=== PATIENT | female | born 1995 | race Caucasian/White ===

== ENCOUNTER 2017-12-19 03:25 | Inpatient (IN) | payer OTHER ==
[~2017-12-19] VITALS: Ht 167.6 cm; Wt 48.7 kg
--- NOTE | 2017-12-19 04:08 | PD ---
HPI Chief Complaint: ba Time Seen by Provider: 04:08 Travel History International Travel<30 days: No Contact w/Intl Traveler<30days: No Traveled to known affect area: No History of Present Illness HPI 22-year-old female presents to the emergency department as a transfer from [facility] for psychiatric evaluation. Patient denies any suicidal homicidal ideations. States that she takes medication for depression. Per report, the family has voiced concern about her worsening depression and erratic behavior. Patient tells me that she does not feel she is acting any differently. She denies any illicit drug use. States that she has been "institutionalized" for alcoholism in the past but has not been drinking alcohol. She denies any other acute medical needs at this time. [facility] Past Medical History Depression: Yes Social History Tobacco Use: Yes Allergies-Medications (Allergen,Severity, Reaction): Coded Allergies: No Known Allergies (Unverified , 12/19/17) Review of Systems Except as stated in HPI: all other systems reviewed are Neg Physical Exam Narrative GENERAL: Well-nourished female patient, no acute distress. SKIN: Focused skin assessment warm/dry. HEAD: Atraumatic. Normocephalic. EYES: Pupils equal and round. No scleral icterus. No injection or drainage. ENT: No nasal bleeding or discharge. Mucous membranes pink and moist. NECK: Trachea midline. No JVD. CARDIOVASCULAR: Regular rate and rhythm. No murmur appreciated. RESPIRATORY: No accessory muscle use. Clear to auscultation. Breath sounds equal bilaterally. GASTROINTESTINAL: Abdomen soft, non-tender, nondistended. Hepatic and splenic margins not palpable. MUSCULOSKELETAL: No obvious deformities. No clubbing. No cyanosis. No edema. NEUROLOGICAL: Awake and alert. No obvious cranial nerve deficits. Motor grossly within normal limits. Normal speech. MDM Medical Decision Making Medical Screen Exam Complete: Yes Emergency Medical Condition: Yes Medical Record Reviewed: Yes Differential Diagnosis Mood disorder versus personality disorder versus adjustment reaction disorder Narrative Course 22-year-old female presents emergency department for psychiatric evaluation from [facility]. Patient appears well and without distress. She denies suicidal homicidal ideations. Lab work is reviewed from the transferring facility and without acute concern. Patient does have a [place] act that accompanies her, however it is not signed. Patient will be considered voluntary at this time. She is medically cleared to undergo psychiatric screening for further evaluation and disposition. Diagnosis Primary Impression: Adjustment reaction Qualified Codes: F43.20 - Adjustment disorder, unspecified Condition: Stable Evie Fuentes Dec 19, 2017 04:08
[2017-12-19] MEDS ORDERED: FLUO40CA PO (04:17)
[2017-12-19] MEDS ORDERED: FLUO1TAB3 PO (04:17)
[2017-12-19 04:18] VITALS: BP 140/78; PULSE 90; RESP 16; TEMP 98.3; O2SAT 100
[2017-12-19] MEDS ORDERED: NICOTINE 21 MG/24 HR PATCH T-DERMAL ONE (04:30)
[2017-12-19] MEDS ORDERED: ACETAMINOPHEN 325 MG TAB PO PRN (10:45)
[2017-12-19] MEDS ORDERED: MAGNESIUM HYDROXIDE SUSP 30 ML CUP PO PRN (10:45)
[2017-12-19] MEDS ORDERED: ALUMINUM/MAGNESIUM/SIMETH 30 ML CUP PO PRN (10:45)
[2017-12-19] MEDS ORDERED: LORazepam 2 MG/ML VIAL IM PRN ×2 (10:45)
[2017-12-19] MEDS ORDERED: LORazepam 0.5 MG TAB PO PRN (10:45)
--- NOTE | 2017-12-19 11:06 | HHI.HP ---
Provisional Diagnosis Admission Date [place] I. Unspecified psychosis, r/o substance-induced psychosis, r/o brief psychotic episode, r/o first break of schizophrenia, history of MDD, eating disorder [place] II. Deferred [place] III. No significant medical history [place] IV. History of self cutting behavior, drug use, eating disorder [place] V. 40 Certification of Person's Competence To Provide Express and Informed Consent I have personally examined Cheryl Mo , a person being served at [facility] on, Dec 19, 2017 10:47. Express and informed consent means consent voluntarily given in writing, by a competent person, after sufficient explanation and disclosure of the subject matter involved to enable the person to make a knowing and willful decision without any element of force, fraud, deceit, duress, or other form of constraint or coercion. This person is 18 years of age or older, is not now known to be incompetent to consent to treatment with a guardian advocate, and does not have a health care surrogate or proxy currently making medical treatment decisions. I have found this person to be one of the following: [] Competent to provide express and informed consent, as defined above, for voluntary admission to this facility and is competent to provide express and informed consent for treatment. He/she has the consistent capacity to make well reasoned, willful, and knowing decisions concerning his or her medical or mental health treatment. The person fully and consistently understands the purpose of the admission for examination/placement and is fully capable of personally exercising all rights assured under [place] Incompetent to provide express and informed consent to voluntary admission, and this is incompetent to provide express and informed consent to treatment. The person must be transferred to involuntary status and a petition for a guardian advocate filed with the Circuit Court. [x] Refusing to provide express and informed consent to voluntary admission but is competent to provide express and informed consent for treatment. The person must be discharged or transferred to involuntary status. Form shall be completed within 24 hours of a person's arrival at the receiving facility and filed in the clinical record of each person: 1. Admitted on a voluntary basis 2. Permitted to provide express and informed consent to his/her own treatment 3. Allowed to transfer from involuntary to voluntary status 4. Prior to permitting a person to consent to his or her own treatment after having been previously found incompetent to consent to treatment. History of Present Illness Capacity: Has Capacity HPI The patient is a 22-year-old woman, domiciled with her parents, she has a boyfriend, unemployed, first time at [place], with self-reported psychiatric history of eating disorder, depression, marijuana and alcohol use disorder, self cutting behavior, she denies previous psychiatric hospitalizations, she denies suicidal attempts, she is on Prozac 40 mg, no significant medical history, who presents to the emergency department as a transfer from [facility] for psychiatric evaluation. On her initial ER presentation :"patient denies any suicidal homicidal ideations. States that she takes medication for depression. Per report, the family has voiced concern about her worsening depression and erratic behavior. Patient tells me that she does not feel she is acting any differently. She denies any illicit drug use. States that she has been "institutionalized" for alcoholism in the past but has not been drinking alcohol. She denies any other acute medical needs at this time.". Patient was seen today for psychiatric evaluation. EMR was reviewed. Documentation from [facility] reviewed. On psychiatric evaluation today the patient is found in the ER, oddly related, in a perplexed state, definitely internally preoccupied. All her belongings and even her pajamas are spread in the floor. She says that those are things that she does not need anymore "is just garbage". Patient also have a periodic abnormal involuntary movement in her neck and her arms. She says that she was brought here "by those people, you know them". Patient reports that she does not really know the reason she is here. The patient seems to be very confused, she is completely disoriented, she does not know which she is, she says that today is July 12, 1925. Patient is very labile, with frequent inappropriate laughing, but she is redirectable. She reports good mood, she says that she is happy, she denies suicidal and homicidal ideation, she denies visual hallucinations. She reports auditory hallucinations "the voices of my friends telling me to hurt myself". She reports that she suffers of anorexia and depression, but she is unable to elaborate about outpatient care and previous hospitalizations. At the beginning she denied the use of drugs, but with reassurance the patient was able to say that she has been using drugs, but she does not say the name of the drugs. She reports that she has been "dreaming while awake, feeling that I am another person who took my body". We called family member for collateral information, and [phone], but unfortunately nobody picked up the phone. Review of Systems Endocrine: DENIES: Abnorml menstrual pattern, Heat/cold intolerance, Polydipsia , Polyuria, Polyphagia Eyes: DENIES: Blurred vision, Diplopia, Eye inflammation, Eye pain, Vision loss , Photosensitivity, Double Vision Ears, nose, mouth, throat: DENIES: Tinnitus, Hearing loss, Vertigo, Nasal discharge, Oral lesions, Throat pain, Hoarseness, Ear Pain, Running Nose, Epistaxis, Sinus Pain, Toothache, Odynophagia Respiratory: DENIES: Apneas, Cough, Snoring, Wheezing, Hemoptysis, Sputum production, Shortness of breath Gastrointestinal: DENIES: Abdominal pain, Black stools, Bloody stools, Constipation, Diarrhea, Nausea, Vomiting, Difficulty Swallowing, Anorexia Genitourinary: DENIES: Abnormal vaginal bleeding, Dysmenorrhea, Dyspareunia, Sexual dysfunction, Urinary frequency, Urinary incontinence, Urgency, Hematuria , Dysuria, Nocturia, Vaginal discharge Musculoskeletal: DENIES: Joint pain, Muscle aches, Stiffness, Joint Swelling, Back pain, Neck pain Integumentary: DENIES: Abnormal pigmentation, Pruritus, Rash, Nail changes, Breast masses, Breast skin changes, Nipple discharge Hematologic/lymphatic: DENIES: Bruising, Lymphadenopathy Immunologic/allergic: DENIES: Eczema, Urticaria Neurologic: DENIES: Abnormal gait, Headache, Localized weakness, Paresthesias, Seizures, Speech Problems, Tremor, Poor Balance Psychiatric: COMPLAINS OF: Confusion, Hallucinations, Delusions Past Psych History Violence risk - others (6 mos) Increased Violence risk - self (6 mos) Increased Substance Abuse History Drugs/Alcohol past 12 months Patient reports the use of alcohol in the past, daily use of marijuana, Past Family Social History Coded Allergies: No Known Allergies (Unverified , 12/19/17) Reported Medications Fluoxetine (Fluoxetine) 40 Mg Cap, 40 CAP PO DAILY, #30 CAP 0 Refills 12/19/17 Current Medications Medications (Trade) Dose Ordered Sig/Mary Route Start Time Stop Time Status Last Admin (PROzac) 1,600 mg DAILY PO 12/19/17 10:45 UNV Family Psych History She reports that her mother has depression Social History Patient was born and raised in [place], she lives in [place] with her parents, she has a boyfriend, she is unemployed, graduated from high school Patient's Strengths (min. 2) Patient is hyperactive, with involvement of psychomotor agitation, but no tremors, no EPS, no withdrawal present Physical Exam Vital Signs Vital Signs Date Time Temp Pulse Resp B/P (MAP) Pulse Ox O2 Delivery O2 Flow Rate FiO2 12/19/17 04:18 98.3 90 16 140/78 (98) 100 Room Air Mental Status Examination Appearance: Appropriate Consciousness: Alert Orientation: x4, Person Motor Activity: Normal gait Speech: Unremarkable Language: Adequate Fund of Knowledge: Adequate Attention and Concentration: Adequate Memory: Impaired Mood: Appropriate Affect: Appropriate Thought Process & Associations: Intact, Loose associations, Disorganized Thought Content: Hallucinations, Thought blocking, Depersonalization, Derealization Hallucination Type: Auditory Delusion Type: Paranoid Suicidal Ideation: No Suicidal Plan: No Suicidal Intention: No Homicidal Ideation: No Homicidal Plan: No Homicidal Intention: No Insight: Fair Judgment: Impulsive Assessment & Plan Problem List: (1) Unspecified psychosis ICD Codes: F29 - Unspecified psychosis not due to a substance or known physiological condition Assessment & Plan: On psychiatric evaluation today the patient presents with stage of perplexity, internal preoccupation, blocking thought, delay speech and paranoia. Throughout the evaluation the patient also presents periods of tangentiality, disorganized speech, depersonalization and derealization. She reports auditory hallucinations of voices of her friends telling her to kill herself. The patient also presents a significant cognitive impairment, she is confused, with fluctuation of consciousness and attention, and she is completely disoriented in time and place. Unfortunately we did not have sufficient collateral information to complete the psychiatric assessment. The patient is poor historian and has limited reliability. But she reports history of depression, eating disorder which is evident by patient low weight and lanugo in her back. She also has history of alcohol use disorder, with several institutionalizations for rehabilitation, poor coping skills, self cutting behavior without SI. At this moment the etiology of her current presentation continue to be unclear, but given the nature of her psychosis and cognitive impairment my impression is that substance induced psychosis she will remain high in the differential followed by primary psychosis, mood disorders and also personality disorder. Patient would be admitted in psychiatry for stabilization and safety. Will order psychiatric consult for second opinion. I will continue her Prozac 40 mg, we will start olanzapine 2.5 mg twice daily to help with psychosis. The patient might benefit of a brain CT to rule out neurological causes of her psychosis. Transfer to 2700 unit. Assessment & Plan Estimated LOS: days Sergey Almonte MD Dec 19, 2017 11:06
[2017-12-19 12:00] VITALS: BP 133/85; PULSE 110; RESP 17; TEMP 98; O2SAT 98
--- NOTE | 2017-12-19 13:13 | PD.PSY.CON ---
Provisional Diagnosis Admission Date Dec 19, 2017 at 10:47 [place] I. Unspecified psychosis, r/o substance-induced psychosis, r/o brief psychotic episode, r/o first break of schizophrenia, history of MDD, eating disorder [place] II. Deferred [place] III. No significant medical history [place] IV. History of self cutting behavior, drug use, eating disorder [place] V. 40 History of Present Illness Service Psychiatry Consult Requested By Dr. Palomino Reason for Consult Second opinion petition supporting [facility] Primary Care Physician Unknown HPI The patient is a 22-year-old woman, domiciled with her parents, she has a boyfriend, unemployed, first time at [place], with self-reported psychiatric history of eating disorder, depression, marijuana and alcohol use disorder, self cutting behavior, she denies previous psychiatric hospitalizations, she denies suicidal attempts, she is on Prozac 40 mg, no significant medical history, who presents to the emergency department as a transfer from [facility] for psychiatric evaluation. On her initial ER presentation :"patient denies any suicidal homicidal ideations. States that she takes medication for depression. Per report, the family has voiced concern about her worsening depression and erratic behavior. Patient tells me that she does not feel she is acting any differently. She denies any illicit drug use. States that she has been "institutionalized" for alcoholism in the past but has not been drinking alcohol. She denies any other acute medical needs at this time.". Patient was seen today for psychiatric evaluation. EMR was reviewed. Documentation from [facility] reviewed. On psychiatric evaluation today the patient is found in the ER, oddly related, in a perplexed state, definitely internally preoccupied. All her belongings and even her pajamas are spread in the floor. She says that those are things that she does not need anymore "is just garbage". Patient also have a periodic abnormal involuntary movement in her neck and her arms. She says that she was brought here "by those people, you know them". Patient reports that she does not really know the reason she is here. The patient seems to be very confused, she is completely disoriented, she does not know which she is, she says that today is July 12, 1925. Patient is very labile, with frequent inappropriate laughing, but she is redirectable. She reports good mood, she says that she is happy, she denies suicidal and homicidal ideation, she denies visual hallucinations. She reports auditory hallucinations "the voices of my friends telling me to hurt myself". She reports that she suffers of anorexia and depression, but she is unable to elaborate about outpatient care and previous hospitalizations. At the beginning she denied the use of drugs, but with reassurance the patient was able to say that she has been using drugs, but she does not say the name of the drugs. She reports that she has been "dreaming while awake, feeling that I am another person who took my body". We called family member for collateral information, and [phone], but unfortunately nobody picked up the phone. For [address] note dictated by Dr. Palomino reviewed and agreed with. Dr. Palomino he has sign first opinion petition supporting Lagunas act. Patient seen by me in her room with nurse Brittney. Patient continues disorganized and quite scattered and somewhat vigilant. She acknowledges infrequent marijuana user, states she is also an alcoholic but is been sober for about 2 months. She also does have a history of mental health issues and hospitalizations related to that along with addictions. I agree patient meets criteria for involuntary psychiatric hospitalization under the Lagunas act thus I'll cosign second opinion petition supporting Lagunas act Past Family Social History Coded Allergies: No Known Allergies (Unverified , 12/19/17) Reported Medications Fluoxetine (Fluoxetine) 40 Mg Cap, 40 CAP PO DAILY, #30 CAP 0 Refills 12/19/17 Current Medications Medications (Trade) Dose Ordered Sig/Mary Route Start Time Stop Time Status Last Admin (PROzac) 1,600 mg DAILY PO 12/19/17 10:45 UNV (Ativan) 1 mg Q6H PRN PO 12/19/17 10:45 UNV (Ativan Inj) 1 mg Q6H PRN IM 12/19/17 10:45 (Ativan) 0.5 mg Q12H PRN PO 12/19/17 10:45 UNV (Ativan Inj) 0.5 mg Q12H PRN IM 12/19/17 10:45 UNV (Tylenol) 650 mg Q4H PRN PO 12/19/17 10:45 (Milk Of Magnesia Liq) 30 ml DAILY PRN PO 12/19/17 10:45 UNV (Mag-Al Plus Susp Liq) 30 ml Q6H PRN PO 12/19/17 10:45 (Habitrol 21 Mg Patch.24 Hr) 1 patch DAILY T-DERMAL 12/20/17 09:00 UNV (ZyPREXA) 2.5 mg Q12HR PO 12/19/17 21:00 UNV Patient's Strengths (min. 2) Patient is hyperactive, with involvement of psychomotor agitation, but no tremors, no EPS, no withdrawal present Physical Exam Vital Signs Vital Signs Date Time Temp Pulse Resp B/P (MAP) Pulse Ox O2 Delivery O2 Flow Rate FiO2 12/19/17 12:04 12/19/17 04:18 98.3 90 16 100 Room Air Mental Status Examination Appearance: Appropriate Consciousness: Alert Orientation: x4, Person Motor Activity: Normal gait Speech: Unremarkable Language: Adequate Fund of Knowledge: Adequate Attention and Concentration: Adequate Memory: Impaired Mood: Appropriate Affect: Appropriate Thought Process & Associations: Intact, Loose associations, Disorganized Thought Content: Hallucinations, Thought blocking, Depersonalization, Derealization Hallucination Type: Auditory Delusion Type: Paranoid Suicidal Ideation: No Suicidal Plan: No Suicidal Intention: No Homicidal Ideation: No Homicidal Plan: No Homicidal Intention: No Insight: Fair Judgment: Impulsive Assessment & Plan Problem List: (1) Brief psychotic disorder ICD Codes: F23 - Brief psychotic disorder Assessment & Plan Estimated LOS: Louis Harding MD Dec 19, 2017 13:13
[2017-12-19] MEDS: REMOVE OLD NICODERM (NICOTINE) PATCH T-DERMAL SCH (21:00)
[2017-12-19] MEDS ORDERED: OLANZapine 2.5 MG TAB PO SCH (21:00)
[2017-12-20 06:09] VITALS: BP 104/59; PULSE 87; RESP 20; TEMP 98; O2SAT 98
[2017-12-20] MEDS: NICOTINE 21 MG/24 HR PATCH T-DERMAL SCH (09:00)
[2017-12-20] MEDS: FLUoxetine HCL 20 MG CAP PO SCH ×2 (09:00→16:08)
[2017-12-20 10:53] LABS: BICARBONATE 28.9 MEQ/L (21.0-32.0); BLOOD UREA NITROGEN 17 MG/DL (7-18); CALCIUM 9.5 MG/DL (8.5-10.1); CHLORIDE 102 MEQ/L (98-107); CHOLESTEROL 241 MG/DL (120-200); CREATININE 0.81 MG/DL (0.50-1.00); GLOMERULAR FILTRATION RATE 88 ML/MIN (>89); GLUCOSE,RANDOM 51 MG/DL (74-106); SODIUM (NA) 139 MEQ/L (136-145)
[2017-12-20 11:03] LABS: CHOLESTEROL/ HDL RATIO 3.01 RATIO; LDL CHOLESTEROL 106 MG/DL (0-99); TRIGLYCERIDES 274 MG/DL (42-150)
--- NOTE | 2017-12-20 13:44 | HHI.PYPN ---
Subjective Remarks Patient seen in day room with floor staff, chart review, patient discussed with nurse. Patient compliant medication. Patient continues distracted with thought blocking, vague about auditory hallucinations. Otherwise patient a behavior problems. Will increase scheduled Zyprexa to 5 mg twice a day Review of Systems Except as stated in HPI: all other systems reviewed are Neg Mental Status Examination Appearance: Appropriate Consciousness: Alert Orientation: x4, Person Motor Activity: Normal gait Speech: Unremarkable Language: Adequate Fund of Knowledge: Adequate Attention and Concentration: Adequate Memory: Impaired Mood: Appropriate Affect: Appropriate Thought Process & Associations: Intact, Loose associations, Disorganized Thought Content: Hallucinations, Thought blocking, Depersonalization, Derealization Hallucination Type: Auditory Delusion Type: Paranoid Suicidal Ideation: No Suicidal Plan: No Suicidal Intention: No Homicidal Ideation: No Homicidal Plan: No Homicidal Intention: No Insight: Fair Judgment: Impulsive Results Labs Test 12/20/17 09:06 Blood Urea Nitrogen 17 MG/DL Creatinine 0.81 MG/DL Random Glucose 51 MG/DL Calcium Level 9.5 MG/DL Sodium Level 139 MEQ/L Potassium Level 3.9 MEQ/L Chloride Level 102 MEQ/L Carbon Dioxide Level 28.9 MEQ/L Anion Gap 8 MEQ/L Estimat Glomerular Filtration Rate 88 ML/MIN Triglycerides Level 274 MG/DL Cholesterol Level 241 MG/DL LDL Cholesterol 106 MG/DL HDL Cholesterol 80.0 MG/DL Cholesterol/HDL Ratio 3.01 RATIO Vitals/IOs Vital Signs Date Time Temp Pulse Resp B/P (MAP) Pulse Ox O2 Delivery O2 Flow Rate FiO2 12/20/17 06:09 98.0 87 20 104/59 (74) 98 12/19/17 04:18 Room Air Assessment & Plan Problem List: (1) Brief psychotic disorder ICD Codes: F23 - Brief psychotic disorder Assessment & Plan Estimated LOS: days patient remained psychotic thought blocking vague auditory hallucinations. The no behavior problems. See medication adjustment above Justification for Cont. Inpt. At this time patient decompensated place a lower level of care Discharge Planning To be determined Louis Carmichael MD Dec 20, 2017 13:44
[2017-12-20] MEDS: LORazepam 1 MG TAB PO PRN (16:08)
[2017-12-20 17:10] LABS: HEMOGLOBIN A1C 5.7 % (4.3-6.0)
[2017-12-20] MEDS: REMOVE OLD NICODERM (NICOTINE) PATCH T-DERMAL SCH (21:00)
[2017-12-20] MEDS: OLANZapine 5 MG TAB PO SCH (21:32)
[2017-12-21 06:16] VITALS: BP 129/79; PULSE 74; RESP 18; TEMP 98.2; O2SAT 97
[2017-12-21] MEDS: OLANZapine 5 MG TAB PO SCH ×2 (08:52→20:15)
[2017-12-21] MEDS: NICOTINE 21 MG/24 HR PATCH T-DERMAL SCH (08:52)
[2017-12-21] MEDS: FLUoxetine HCL 20 MG CAP PO SCH (09:00)
[2017-12-21] MEDS: LORazepam 1 MG TAB PO PRN ×2 (14:54→20:15)
--- NOTE | 2017-12-21 15:09 | HHI.PYPN ---
Subjective Remarks Reviewed electronic medical record and discussed case with staff. Follow-up was performed in patient's room with nurse present. Patient was found in day room and ambulated to her room without incident. She reports that she slept well and that her appetite has been good. She denies suicidal, homicidal ideations as well as visual or auditory hallucinations. Patient speech was rapid and pressured. She appeared to be almost manic. When asked if she had ever had manic type episodes patient states that this is "just her personality" . She does admit to being treated for attention deficit hyperactivity disorder as a child. She states that loud noises and being around a lot of commotion tend to make her more excitable and indicates another patient who has been cursing and yelling wildly in the weeks all morning. Mental Status Examination Appearance: Appropriate Consciousness: Alert Orientation: x4, Person Motor Activity: Normal gait Speech: Unremarkable Language: Adequate Fund of Knowledge: Adequate Attention and Concentration: Adequate Memory: Impaired Mood: Appropriate Affect: Appropriate Thought Process & Associations: Intact, Loose associations, Disorganized Thought Content: Hallucinations, Thought blocking, Depersonalization, Derealization Hallucination Type: Auditory Delusion Type: Paranoid Suicidal Ideation: No Suicidal Plan: No Suicidal Intention: No Homicidal Ideation: No Homicidal Plan: No Homicidal Intention: No Insight: Fair Judgment: Impulsive Results Vitals/IOs Vital Signs Date Time Temp Pulse Resp B/P (MAP) Pulse Ox O2 Delivery O2 Flow Rate FiO2 12/21/17 06:16 98.2 74 18 129/79 (96) 97 12/19/17 04:18 Room Air Assessment & Plan Problem List: (1) Brief psychotic disorder ICD Codes: F23 - Brief psychotic disorder Assessment & Plan Estimated LOS: We will continue with treatment plan in an effort to psychiatrically stabilize patient. Justification for Cont. Inpt. Moving patient to a lower level of care would likely result in decompensation. Modesta العلي Dec 21, 2017 15:09
[2017-12-21 16:46] VITALS: BP 143/91; PULSE 107; RESP 19; TEMP 99.1; O2SAT 97
[2017-12-21] MEDS: REMOVE OLD NICODERM (NICOTINE) PATCH T-DERMAL SCH (21:00)
[2017-12-22] MEDS: LORazepam 1 MG TAB PO PRN ×3 (01:35→20:32)
[2017-12-22 06:15] VITALS: BP 122/76; PULSE 81; RESP 18; TEMP 97.4; O2SAT 98
[2017-12-22] MEDS: FLUoxetine HCL 20 MG CAP PO SCH (09:00)
[2017-12-22] MEDS: NICOTINE 21 MG/24 HR PATCH T-DERMAL SCH (09:00)
[2017-12-22] MEDS: OLANZapine 5 MG TAB PO SCH ×2 (09:00→20:31)
--- NOTE | 2017-12-22 10:54 | HHI.PYPN ---
Subjective Remarks Reviewed electronic medical record. Follow-up was performed in the exam room. Patient reports that she slept well and ate a good breakfast. She denies having thoughts of harming herself or others, auditory or visual hallucinations. She reports that her boyfriend came to see her last night and states "he is worried about me". Staff had reported that patient came in and from that visit tearful, when asked why she was crying patient stated that it was because she only got to see him for "a couple of minutes". Staff advised that patient's father would like her to move back to [place] and he reports that he would be willing to fly here to take her back there. When patient was asked about possibly moving back to [place] she advised it was a possibility but then stated that she thought she might like to return to her house in [facility] to try to "correct some mistakes". Staff additionally reported that her patient's family the boyfriend is planning on breaking up with her. Patient's mood is good and her affect is euthymic. Her speech is rapid but seems less pressured today. She reports being anxious to be discharged. Mental Status Examination Appearance: Appropriate Consciousness: Alert Orientation: x4, Person Motor Activity: Normal gait Speech: Unremarkable Language: Adequate Fund of Knowledge: Adequate Attention and Concentration: Adequate Memory: Impaired Mood: Appropriate Affect: Appropriate Thought Process & Associations: Intact, Loose associations, Disorganized Thought Content: Hallucinations, Thought blocking, Depersonalization, Derealization Hallucination Type: Auditory Delusion Type: Paranoid Suicidal Ideation: No Suicidal Plan: No Suicidal Intention: No Homicidal Ideation: No Homicidal Plan: No Homicidal Intention: No Insight: Fair Judgment: Impulsive Results Vitals/IOs Vital Signs Date Time Temp Pulse Resp B/P (MAP) Pulse Ox O2 Delivery O2 Flow Rate FiO2 12/22/17 06:15 97.4 81 18 122/76 (91) 98 12/19/17 04:18 Room Air Assessment & Plan Problem List: (1) Brief psychotic disorder ICD Codes: F23 - Brief psychotic disorder Assessment & Plan Estimated LOS: Continue with current treatment plan. Justification for Cont. Inpt. Moving this patient to a lower level of care would likely result in decompensation. Modesta العلي Dec 22, 2017 10:54
[2017-12-22 16:43] VITALS: BP 113/76; PULSE 120; RESP 17; TEMP 97.7; O2SAT 98
[2017-12-22 17:12] VITALS: BP 113/76; PULSE 120; RESP 17; TEMP 97.7; O2SAT 98
[2017-12-22] MEDS: REMOVE OLD NICODERM (NICOTINE) PATCH T-DERMAL SCH (20:34)
[2017-12-23] MEDS: LORazepam 1 MG TAB PO PRN ×2 (05:00→14:16)
[2017-12-23 06:35] VITALS: BP 133/89; PULSE 99; RESP 17; TEMP 98.2; O2SAT 99
[2017-12-23] MEDS: FLUoxetine HCL 20 MG CAP PO SCH (08:30)
[2017-12-23] MEDS: OLANZapine 5 MG TAB PO SCH (08:30)
[2017-12-23] MEDS: NICOTINE 21 MG/24 HR PATCH T-DERMAL SCH (08:31)
--- NOTE | 2017-12-23 11:55 | HHI.PYPN ---
Subjective Remarks Patient seen in the weeks with nurse Ira, patient continues somewhat disorganized superficial and childlike. She continues to appears somewhat distracted. She has been compliant with medications. Though she has little insight. Stating she wants to go her grandmother's for a while however she states her grandmother is on a cruise and will be only her boyfriend in the house. She acknowledged her desire to alliance party with him in that house. Will increase Zyprexa to 10 mg every 12 hours. Patient remains diffusely psychotic and delusional Review of Systems Except as stated in HPI: all other systems reviewed are Neg Mental Status Examination Appearance: Appropriate Consciousness: Alert Orientation: x4, Person Motor Activity: Normal gait Speech: Unremarkable Language: Adequate Fund of Knowledge: Adequate Attention and Concentration: Adequate Memory: Impaired Mood: Appropriate Affect: Appropriate Thought Process & Associations: Intact, Loose associations, Disorganized Thought Content: Hallucinations, Thought blocking, Depersonalization, Derealization Hallucination Type: Auditory Delusion Type: Paranoid Suicidal Ideation: No Suicidal Plan: No Suicidal Intention: No Homicidal Ideation: No Homicidal Plan: No Homicidal Intention: No Insight: Fair Judgment: Impulsive Results Vitals/IOs Vital Signs Date Time Temp Pulse Resp B/P (MAP) Pulse Ox O2 Delivery O2 Flow Rate FiO2 12/23/17 06:35 98.2 99 17 133/89 (104) 99 Assessment & Plan Problem List: (1) Brief psychotic disorder ICD Codes: F23 - Brief psychotic disorder Assessment & Plan Estimated LOS: days patient remained psychotic and delusional, see medication adjustment above it appears patient's mother would be willing to come here to [place] to accompany her daughter back to [place]. Though that this time patient is refusing to do that saying she would like to go to her grandmother's house Justification for Cont. Inpt. At this time patient will decompensate or place a lower level of care Discharge Planning To be determined Louis Carmichael MD Dec 23, 2017 11:55
[2017-12-23] MEDS: OLANZapine 10 MG TAB PO SCH (20:12)
[2017-12-23] MEDS: REMOVE OLD NICODERM (NICOTINE) PATCH T-DERMAL SCH (20:40)
[2017-12-24] MEDS: LORazepam 1 MG TAB PO PRN ×3 (02:40→20:26)
[2017-12-24 05:56] VITALS: BP 134/86; PULSE 80; RESP 16; TEMP 97.1; O2SAT 97
--- NOTE | 2017-12-24 08:50 | PD.TTN ---
Patient Problems 1. Discharge planning 2. Medication compliance 3. Knowledge deficit 4. Lack of coping skills Progress Toward Goals Provider Present: Dr. Norman Carmichael Provider Input: 12/23/17 still meets criterian and medications titrated Psychiatric Counselors Present: Lucero Rios LCSW Psych Therapist Input: 12/23/17 she was on 2600 initially but then had to be moved to 2700 Group Spec/RT/OT/DUNN Present: BARRETT Payton Group Spec/RT/OT/DUNN Input: 12/23/17 Lucero Bravo LCSW Dec 24, 2017 08:49
[2017-12-24] MEDS: NICOTINE 21 MG/24 HR PATCH T-DERMAL SCH (08:52)
[2017-12-24] MEDS: OLANZapine 10 MG TAB PO SCH ×2 (08:53→20:26)
[2017-12-24] MEDS: FLUoxetine HCL 20 MG CAP PO SCH (08:53)
--- NOTE | 2017-12-24 12:09 | HHI.PYPN ---
Subjective Remarks Reviewed electronic medical record and discussed case with staff. Follow-up was performed in the day room with patient sitting at the table. She reports that she slept well has good appetite and has been participating activities. Her mood is good her affect is euthymic. She reports that she was about to call her boyfriend and then corrects herself saying that "technically were engaged". When asked when that occurred she states approximately a week or so ago. States that she spoke with her parents yesterday. She has been compliant with her medications. Denies feeling suicidal, homicidal or having auditory or visual hallucinations. Mental Status Examination Appearance: Appropriate Consciousness: Alert Orientation: x4, Person Motor Activity: Normal gait Speech: Unremarkable Language: Adequate Fund of Knowledge: Adequate Attention and Concentration: Adequate Memory: Impaired Mood: Appropriate Affect: Appropriate Thought Process & Associations: Intact, Loose associations, Disorganized Thought Content: Hallucinations, Thought blocking, Depersonalization, Derealization Hallucination Type: Auditory Delusion Type: Paranoid Suicidal Ideation: No Suicidal Plan: No Suicidal Intention: No Homicidal Ideation: No Homicidal Plan: No Homicidal Intention: No Insight: Fair Judgment: Impulsive Results Vitals/IOs Vital Signs Date Time Temp Pulse Resp B/P (MAP) Pulse Ox O2 Delivery O2 Flow Rate FiO2 12/24/17 05:56 97.1 80 16 134/86 (102 97 Assessment & Plan Problem List: (1) Brief psychotic disorder ICD Codes: F23 - Brief psychotic disorder Assessment & Plan Estimated LOS: We will continue with treatment plan. Patient does seem to be in improved spirits. A safe discharge plan is in the . Days Justification for Cont. Inpt. Moving this patient to a lower level of care at this time would likely result in her decompensation. Discharge planning in progress. Modesta العلي Dec 24, 2017 12:09
[2017-12-24 17:57] VITALS: BP 126/77; PULSE 111; RESP 17; TEMP 99.5; O2SAT 100
[2017-12-24] MEDS: REMOVE OLD NICODERM (NICOTINE) PATCH T-DERMAL SCH (20:36)
[2017-12-25 06:03] VITALS: BP 125/87; PULSE 114; RESP 20; TEMP 97.2; O2SAT 99
[2017-12-25] MEDS: NICOTINE 21 MG/24 HR PATCH T-DERMAL SCH ×3 (09:00→16:33)
[2017-12-25] MEDS: FLUoxetine HCL 20 MG CAP PO SCH (09:52)
[2017-12-25] MEDS: OLANZapine 10 MG TAB PO SCH ×2 (09:52→21:00)
[2017-12-25] MEDS ORDERED: LORazepam 1 MG TAB PO STA (12:40)
[2017-12-25] MEDS: LORazepam 1 MG TAB PO PRN (12:42)
--- NOTE | 2017-12-25 12:45 | HHI.PYPN ---
Subjective Remarks Patient seen in weeks way with nurse Nanda, patient somewhat aroused agitated angry wanting to leave saying she wants to go to the mother. That she wants to stay in a hotel tonight. Stating that she feels nervous on this unit. I walked the patient to the short-ha. Shared with her the information that it appears patient's mother will be flying down here overnight tonight to possibly pickup patient tomorrow and take patient back to [place] with patient's automobile. Patient seemed to process that is having a difficult time slowing down her emotions. Though she did slow down to the point where she agreed to take an oral Ativan. She also asked for a couple of coffee crackers and peanut butter which we will also supply her. I told patient that the plan would be if she behaves to discharge her tomorrow to her mother. Review of Systems Except as stated in HPI: all other systems reviewed are Neg Mental Status Examination Appearance: Appropriate Consciousness: Alert Orientation: x4, Person Motor Activity: Normal gait Speech: Unremarkable Language: Adequate Fund of Knowledge: Adequate Attention and Concentration: Adequate Memory: Impaired Mood: Appropriate Affect: Appropriate Thought Process & Associations: Intact, Loose associations, Disorganized Thought Content: Hallucinations, Thought blocking, Depersonalization, Derealization Hallucination Type: Auditory Delusion Type: Paranoid Suicidal Ideation: No Suicidal Plan: No Suicidal Intention: No Homicidal Ideation: No Homicidal Plan: No Homicidal Intention: No Insight: Fair Judgment: Impulsive Results Vitals/IOs Vital Signs Date Time Temp Pulse Resp B/P (MAP) Pulse Ox O2 Delivery O2 Flow Rate FiO2 12/25/17 06:03 97.2 114 20 125/87 (100) 99 Assessment & Plan Problem List: (1) Brief psychotic disorder ICD Codes: F23 - Brief psychotic disorder Assessment & Plan Estimated LOS: days patient continues somewhat distraught anxious and agitated. Was able to be calmed down without too much difficulty. She medication adjustment above. We need to verify and see if patient's mother will arrive tomorrow from [place] hopefully to pickler helper her daughter and take her daughter with her daughter's vehicle back to [place] for further care and attention Justification for Cont. Inpt. At this time patient decompensated not place an appropriate level of care Discharge Planning Possible discharge to mother tomorrow Louis Carmichael MD Dec 25, 2017 12:45
[2017-12-25] MEDS ORDERED: LORazepam 1 MG TAB PO ONE (17:00)
[2017-12-25] MEDS ORDERED: OLANZapine 5 MG TAB PO ONE (17:00)
[2017-12-25 17:32] VITALS: BP 98/76; PULSE 90; RESP 18; TEMP 97.1; O2SAT 100
[2017-12-25] MEDS: REMOVE OLD NICODERM (NICOTINE) PATCH T-DERMAL SCH (21:00)
[2017-12-26] MEDS: LORazepam 1 MG TAB PO PRN ×3 (05:16→20:23)
[2017-12-26 06:02] VITALS: BP 142/81; PULSE 105; RESP 18; TEMP 97; O2SAT 98
[2017-12-26] MEDS: FLUoxetine HCL 20 MG CAP PO SCH (08:51)
[2017-12-26] MEDS: OLANZapine 10 MG TAB PO SCH ×2 (08:51→20:23)
[2017-12-26] MEDS: NICOTINE 21 MG/24 HR PATCH T-DERMAL SCH (08:51)
--- NOTE | 2017-12-26 11:32 | HHI.PYPN ---
Subjective Remarks Patient seen in [facility] retained by [employer]pa. Patient is no behavioral problem and court, she showed self-control and, thus that was absent yesterday. She is compliant with her medications. Anticipating patient's mother flying in from [place] to meet with us tomorrow the possibility of patient being discharged tomorrow to mother probable return to [place] Review of Systems Except as stated in HPI: all other systems reviewed are Neg Mental Status Examination Appearance: Appropriate Consciousness: Alert Orientation: x4, Person Motor Activity: Normal gait Speech: Unremarkable Language: Adequate Fund of Knowledge: Adequate Attention and Concentration: Adequate Memory: Impaired Mood: Appropriate Affect: Appropriate Thought Process & Associations: Intact, Loose associations, Disorganized Thought Content: Hallucinations, Thought blocking, Depersonalization, Derealization Hallucination Type: Auditory Delusion Type: Paranoid Suicidal Ideation: No Suicidal Plan: No Suicidal Intention: No Homicidal Ideation: No Homicidal Plan: No Homicidal Intention: No Insight: Fair Judgment: Impulsive Results Vitals/IOs Vital Signs Date Time Temp Pulse Resp B/P (MAP) Pulse Ox O2 Delivery O2 Flow Rate FiO2 12/26/17 06:02 97.0 105 18 142/81 (101) 98 Assessment & Plan Problem List: (1) Brief psychotic disorder ICD Codes: F23 - Brief psychotic disorder Assessment & Plan Estimated LOS: days patient seen in [facility] retained by [employer] Alpa, patient overall is calm and cooperative though she did not testify at the advice of her legal records manager for now continue treatment await meeting with patient's mother tentatively planned for tomorrow Justification for Cont. Inpt. At this time patient will decompensate from a place an appropriate level of care Discharge Planning Possible discharge to mother Louis Carmichael MD Dec 26, 2017 11:32
[2017-12-26 17:55] VITALS: BP 118/79; PULSE 125; RESP 17; TEMP 98.3; O2SAT 96
[2017-12-26] MEDS: REMOVE OLD NICODERM (NICOTINE) PATCH T-DERMAL SCH (20:55)
[2017-12-27 06:07] VITALS: BP 117/65; PULSE 82; RESP 18; TEMP 97.9; O2SAT 100
[2017-12-27] MEDS: FLUoxetine HCL 20 MG CAP PO SCH (08:38)
[2017-12-27] MEDS: OLANZapine 10 MG TAB PO SCH (08:38)
[2017-12-27] MEDS: NICOTINE 21 MG/24 HR PATCH T-DERMAL SCH (08:39)
[2017-12-27] MEDS ORDERED: OLAN10TA PO (11:59)
[2017-12-27] MEDS ORDERED: FLUO40CA PO (11:59)
--- NOTE | 2017-12-27 12:06 | HHI.DS ---
Psychiatry Discharge Summary Inpatient Psychiatric care?: Yes Advance Directive: No Reason Not Provided: Refused Mental Health AdvanceDirective: No Health Care Proxy: No Admission Admission Date Dec 19, 2017 at 10:47 Admission Diagnosis: (1) Brief psychotic disorder ICD Code: F23 - Brief psychotic disorder Brief History The patient is a 22-year-old woman, domiciled with her parents, she has a boyfriend, unemployed, first time at [employer], with self-reported psychiatric history of eating disorder, depression, marijuana and alcohol use disorder, self cutting behavior, she denies previous psychiatric hospitalizations, she denies suicidal attempts, she is on Prozac 40 mg, no significant medical history, who presents to the emergency department as a transfer from [facility] for psychiatric evaluation. On her initial ER presentation :"patient denies any suicidal homicidal ideations. States that she takes medication for depression. Per report, the family has voiced concern about her worsening depression and erratic behavior. Patient tells me that she does not feel she is acting any differently. She denies any illicit drug use. States that she has been "institutionalized" for alcoholism in the past but has not been drinking alcohol. She denies any other acute medical needs at this time.". Patient was seen today for psychiatric evaluation. EMR was reviewed. Documentation from [facility] reviewed. On psychiatric evaluation today the patient is found in the ER, oddly related, in a perplexed state, definitely internally preoccupied. All her belongings and even her pajamas are spread in the floor. She says that those are things that she does not need anymore "is just garbage". Patient also have a periodic abnormal involuntary movement in her neck and her arms. She says that she was brought here "by those people, you know them". Patient reports that she does not really know the reason she is here. The patient seems to be very confused, she is completely disoriented, she does not know which she is, she says that today is July 12, 1925. Patient is very labile, with frequent inappropriate laughing, but she is redirectable. She reports good mood, she says that she is happy, she denies suicidal and homicidal ideation, she denies visual hallucinations. She reports auditory hallucinations "the voices of my friends telling me to hurt myself". She reports that she suffers of anorexia and depression, but she is unable to elaborate about outpatient care and previous hospitalizations. At the beginning she denied the use of drugs, but with reassurance the patient was able to say that she has been using drugs, but she does not say the name of the drugs. She reports that she has been "dreaming while awake, feeling that I am another person who took my body". We called family member for collateral information, and [phone], but unfortunately nobody picked up the phone. For [address] Above note dictated by Dr. Palomino reviewed and agreed with. Dr. Palomino he has sign first opinion petition supporting [place] act. Patient seen by me in her room with nurse Brittney. Patient continues disorganized and quite scattered and somewhat vigilant. She acknowledges infrequent marijuana user, states she is also an alcoholic but is been sober for about 2 months. She also does have a history of mental health issues and hospitalizations related to that along with addictions. I agree patient meets criteria for involuntary psychiatric hospitalization under the [place] act thus I'll cosign second opinion petition supporting [place] act Tobacco Use In Past 30 Days: Cigarettes But Not Daily Alcohol Use: Never Hospital Course Patient's hospital course was at times somewhat chaotic her initial psychosis delusions mood lability persisted. However she gradually showed compliance with medication. Soften some of the behavior however there episodes this week of emotional lability feeling that her mother was coming into town so she could go stay in a hotel until then. However patient was seen in [place] yesterday patient did quite well she was calm and cooperative. Patient's mother has flown in from [place]. We did meet today with counselor James and patient along with her mother. Mother wishes to have her daughter returned with her to [place]. Patient is willing to do this. The plan is for the mother to get patient's belongings packed the car return here supervisor picking crew the patient. Will supply a month supply of her Haldol and Zyprexa. Family to arrange for mental health follow-up in [facility]. Advised patient to refrain also from the use of any marijuana or other illegal substances. Patient showing some insight of peripheral there may be some difficulty with her managing her mental health issues and possible misuse of substances and [place]. Mother was willing to take responsibility at this time this patient will be discharged to her mother to start the travel to [place] Results Blood Pressure 117 / 65 Vital Signs Date Time Temp Pulse Resp B/P (MAP) Pulse Ox O2 Delivery O2 Flow Rate FiO2 12/27/17 06:07 97.9 82 18 117/65 (82) 100 Laboratory Results Test 12/20/17 09:06 Cholesterol Level 241 MG/DL (120-200) HDL Cholesterol 80.0 MG/DL (40.0-60.0) Hemoglobin A1c 5.7 % (4.3-6.0) LDL Cholesterol 106 MG/DL (0-99) Triglycerides Level 274 MG/DL (42-150) Summary of Procedures None done Pending results at discharge: No Medications # of Antipsychotic meds at D/C: 1 Approp Antipsych med options 1 - Minimum of three failed multiple trials of monotherapy. 2 - Documented plan to taper to monotherapy due to previous use of multiple meds OR cross-taper in progress at D/C. 3 - Documentation of augmentation of Clozapine. 4 - Justification other than those listed in allowable values 1-3, document here : Discharge Discharge Date: Dec 27, 2017 Discharge Diagnosis: (1) Brief psychotic disorder Diagnosis: Principal (Follow-up mental health care in [facility]) ICD Code: F23 - Brief psychotic disorder Pt Condition on Discharge: Stable Discharge Disposition: Discharge Home Discharge Instructions Diet Instructions: As Tolerated, No Restrictions Activities you can perform: Regular-No Restrictions Scheduled Appointment: Unknown Discharge Time > 30 minutes Mental Status Examination Appearance: Appropriate Consciousness: Alert Orientation: x4, Person Motor Activity: Normal gait Speech: Unremarkable Language: Adequate Fund of Knowledge: Adequate Attention and Concentration: Adequate Memory: Impaired Mood: Appropriate Affect: Appropriate Thought Process & Associations: Intact, Loose associations, Disorganized Thought Content: Hallucinations, Thought blocking, Depersonalization, Derealization Hallucination Type: Auditory Delusion Type: Paranoid Suicidal Ideation: No Suicidal Plan: No Suicidal Intention: No Homicidal Ideation: No Homicidal Plan: No Homicidal Intention: No Insight: Fair Judgment: Impulsive Discharge/Advance Care Plan Health Problems: (1) Brief psychotic disorder Goals to promote your health * To prevent worsening of your condition and complications * To maintain your health at the optimal level Directions to meet your goals Take your medications as prescribed Follow your dietary instruction Follow activity as directed Keep your appointments as scheduled Take your immunizations and boosters as scheduled If your symptoms worsen call your PCP, if no PCP go to Urgent Care Center or Emergency Room For 08/04 questions related to your inpatient stay or results of tests pending at discharge, please contact Dr. Louis Carmichael at Smoking is Dangerous to Your Health. Avoid second hand smoking Louis Carmichael MD Dec 27, 2017 12:06
== END 2017-12-27 14:30 | disposition home or self-care (01) | DRG 885 ==
LOC: NED 03:25 → NEDA 10:47 → H260 12:00 → H270 12-20 16:29
PROVIDERS: ADMIT Psychiatry & Neurology Psychiatry; ATTEND Psychiatry & Neurology Psychiatry
DX: F23 Brief psychotic disorder (principal); F50.9 Eating disorder, unspecified; F32.9 Major depressive disorder, single episode, unspecified; Z68.1 Body mass index [BMI] 19.9 or less, adult; F12.90 Cannabis use, unspecified, uncomplicated; F10.21 Alcohol dependence, in remission; R25.9 Unspecified abnormal involuntary movements; Z91.5 Personal history of self-harm; Z72.0 Tobacco use; Z81.8 Family history of other mental and behavioral disorders
CPT/HCPCS: 80048; 80061; 83036; 99285